=== PATIENT | male | born 1995 | race Caucasian/White ===

== ENCOUNTER 2018-11-21 17:58 | Emergency (ER) | payer SELFPAY ==
[~2018-11-21] VITALS: Ht 165.1 cm; Wt 63.5 kg
--- NOTE | 2018-11-21 18:13 | ED General ---
General Chief Complaint: General Problems/Pain Stated Complaint: STD TESTING Source of Information: Patient Exam Limitations: No Limitations History of Present Illness Date Seen by Provider: Nov 21, 2018 Time Seen by Provider: 18:11 Initial Comments Girlfriend tested positive for chlamydia, he is here for STD testing but without symptoms. Timing/Duration: 1-2 Days Severity: Moderate Associated Systoms: Denies Symptoms Allergies and Home Medications Allergies Coded Allergies: No Known Drug Allergies (Unverified , 11/21/18) Home Medications No Active Prescriptions or Reported Meds Patient Home Medication List Home Medication List Reviewed: Yes Review of Systems Review of Systems Constitutional: see HPI EENTM: see HPI Respiratory: no symptoms reported Cardiovascular: no symptoms reported Genitourinary: no symptoms reported Musculoskeletal: no symptoms reported Skin: no symptoms reported Past Uaijlte-Pquehx-Rchweb Hx Patient Social History Alcohol Use: Occasionally Uses Recreational Drug Use: No Smoking Status: Never a Smoker Recent Foreign Travel: No Contact w/Someone Who Travel: No Recent Hopitalizations: No Physical Abuse: No Sexual Abuse: No Mistreated: No Fear: No Past Medical History Surgeries: No Respiratory: No Cardiac: No Neurological: No Genitourinary: No Gastrointestinal: No Musculoskeletal: No Endocrine: No HEENT: No Cancer: No Psychosocial: No Integumentary: No Blood Disorders: No Physical Exam Vital Signs Vital Signs - First Documented 11/21/18 18:08 Temp 98.4 Pulse 77 Resp 20 B/P (MAP) 121/80 (94) Pulse Ox 98 Capillary Refill : Height, Weight, BMI Height: '" Weight: lbs. oz. kg; BMI Method: General Appearance: No Apparent Distress, WD/WN Eyes: Bilateral Eye Normal Inspection, Bilateral Eye PERRL, Bilateral Eye EOMI HEENT: PERRL/EOMI, TMs Normal Neck: Full Range of Motion, Normal Inspection Respiratory: No Accessory Muscle Use, No Respiratory Distress Extremity: Normal Capillary Refill, Normal Inspection Neurologic/Psychiatric: Alert, Oriented x3 Skin: Normal Color, Warm/Dry Progress/Results/Core Measures Suspected Sepsis SIRS Temperature: Pulse: Respiratory Rate: Blood Pressure / Mean: Results/Orders My Orders Orders - RUIZ NICK APRN Ceftriaxone For Im Use (Rocephin For Im (11/21/18 18:15) Azithromycin Tablet (Zithromax Tablet) (11/21/18 18:15) Lidocaine 1% Inj 20 Ml (Xylocaine 1% Inj (11/21/18 18:15) Vital Signs/I&O 11/21/18 18:08 Temp 98.4 Pulse 77 Resp 20 B/P (MAP) 121/80 (94) Pulse Ox 98 Capillary Refill : Departure Communication (Admissions) Patient refuses to allow STD swab Impression Primary Impression: STD exposure Disposition: 01 HOME, SELF-CARE Condition: Stable Departure-Patient Inst. Decision time for Depature: 18:12 Referrals: NO,LOCAL PHYSICIAN (PCP/Family) Primary Care Physician Patient Instructions: STD Prevention Add. Discharge Instructions: All discharge instructions reviewed with patient and/or family. Voiced understanding. Scripts No Active Prescriptions or Reported Meds RUIZ NICK JORDAN WORKER Nov 21, 2018 18:13
[2018-11-21] MEDS ORDERED: AZITHROMYCIN 250 MG TAB (ZITHROMAX) PO SCH (18:15)
[2018-11-21] MEDS ORDERED: cefTRIAXone 1,000 MG/2.86 ml vial (IM ONLY) IM SCH (18:15)
[2018-11-21] MEDS ORDERED: LIDOCAINE 1% INJ 20 ML 20 ML VIAL INJ ONE (18:15)
[2018-11-21 18:28] VITALS: BP 123/70
== END 2018-11-21 18:28 | disposition home or self-care (01) ==
LOC: EDBD 18:00 → ER 18:00
DX: Z20.2 Contact with and (suspected) exposure to infections with a predominantly sexual mode of transmission (principal)
CPT/HCPCS: 99284